=== PATIENT | male | born 1955 | race Hispanic/Latino ===

== ENCOUNTER 2017-08-30 09:35 | Day surgery (SDC) | payer OTHER ==
[2017-08-30] MEDS ORDERED: NACL 0.9% 1000 ML 1,000 ML IV SCH (11:00)
--- NOTE | 2017-08-30 11:06 | Anesthesia Day of Surgery ---
Anesthesia Day of Surgery - Day of Surgery Patient Examined: Yes Patient H&P Reviewed: Yes Patient is NPO: Yes Beta Blockers: Yes
--- NOTE | 2017-08-30 11:06 | Anesthesia Consultation ---
Anesthesia Consult and Med Hx Date of service: 08/30/17 - Airway Anesthetic Teeth Evaluation: Chipped (left back molar ) ROM Head & Neck: Adequate Mental/Hyoid Distance: Adequate Mallampati Class: Class II Intubation Access Assessment: Probably Good - Pulmonary Exam CTA: Yes - Cardiac Exam Cardiac Exam: RRR - Pre-Operative Health Status ASA Pre-Surgery Classification: ASA3 Proposed Anesthetic Plan: MAC - Pulmonary Hx Sleep Apnea: Yes (does not use CPAP) - Cardiovascular System Hx Hypertension: Yes Hx Angina: No Hx Cardia Arrhythmia: Yes (HX A flutter/ Afib, cardioversion 2014 ) Hx Heart Murmur: Yes - Gastrointestinal Hx Gastroesophageal Reflux Disease: Yes - Endocrine Hx Non-Insulin Dependent Diabetes: Yes - Additional Comments Anesthesia Medical History Comments: hx high cholesterol, kidney stones
[2017-08-30] MEDS ORDERED: DIPRIVAN 10 MG/ML IV ONE ×2 (11:31)
--- NOTE | 2017-08-30 14:19 | Operative Report ---
Operative Report Operative Report: Date of procedure: 08/30/2017 Procedure: Colonoscopy with Multiple Snare polypectomies, Hot Biopsy Polypectomy and Submucosal injection. Attending physician: uRdy Ferreira MD [employer] Sh[employer] Roofer: Rudy Ferreira MD Indication: Patient is a 62-year-old male who presents for screening colonoscopy. He has a past history of colon polyps. This colonoscopy serves to evaluate patient so that treatment may be directed based on the findings. Consent: Informed consent was obtained after advising the patient and family regarding nature of this procedure, its indications, potential benefits as well as possible complications including but not limited to bleeding perforation and adverse reaction to medication, infection as well as other cardiopulmonary complications. An informed written and verbal consent was then obtained after due opportunity was provided for questions and answers. Monitoring: Patient was monitored continuously with pulse oximetry and electrocardiographic recordings as well as blood pressure recordings. Vital signs remained stable throughout this procedure with no untoward events. Preoperative assessment: Patient was assessed immediately prior to this procedure for capacity to tolerate monitored anesthesia care and moderate sedation as well as general anesthesia. Patient's ASA classification is 2, Mallampati class is 2, Hyomental distance is 3. Instrument: Cuponomian video colonoscope Medications: Propofol given intravenously in divided doses. For details please refer to anesthesia records. Description of procedure: Patient was placed in the left lateral decubitus position after achieving sedation, a digital rectal examination was performed following which the colonoscope was introduced into the anal verge and advanced to the cecum which was identified by the cecal valve, the appendiceal orifice, as well as by the cecal strap and direct transillumination. The colonoscope was subsequently withdrawn with careful inspection of all mucosal surfaces. Patient tolerated this procedure well and was subsequently taken to the recovery room. The following findings were noted. Findings: Patient had mild melanosis coli involving the entirety of the colon. There was a polyp which measured approximately 7-8 mm in the transverse colon. This was flat. It was elevated with submucosal injection of saline and removed by snare electrocautery and retrieved. In the descending colon, there was another polyp measured protein 7-8 mm which again was flat elevated with submucosal injection of saline and retrieved. There was an adjoining 6 mm sessile polyp in the descending colon which was removed by hot biopsy polypectomy and retrieved. There were a few scattered diverticula in the sigmoid and descending colon. There was some densely adherent thick liquid mucoid stool seen in various sections of the colon which was irrigated as much as possible to optimize visualization. On the retroflex view at the anal verge , patient had internal hemorrhoids. Impression: Transverse colon polyp status post snare polypectomy and submucosal injection Descending colon polyp status post snare polypectomy and submucosal injection Descending colon polyp status post hot biopsy polypectomy Diverticular disease of colon Retained stool Internal hemorrhoids. Plan: Follow pathology report. High-fiber diet. Repeat colonoscopy in 5 years.
--- NOTE | 2017-08-30 14:20 | Discharge Summary ---
Short Stay Discharge Plan Activity: advance as tolerated Weight Bearing Status: Weight Bear as Tolerated Diet: regular Additional Instructions: Post Sedation D/C Instructions When you return home you may resume your regular diet unless otherwise directed. -Go directly home from the hospital and rest quietly. You may resume normal activities tomorrow. -Do NOT drive, return to work, operate any machinery or make any important personal or business decisions today. -Do NOT drink any alcohol or take nerve or sleeping drugs. They add to the effects of the medicine still present in your body. Follow up with Dr. Ferreira in 2 weeks to obtain pathology results and treatment plan. Follow up with: JORDAN NASH MD [Primary Care Provider] - 7 Days
[2017-08-30] MEDS ORDERED: WATER FOR IRRIG STERILE IR ONE (14:34)
--- NOTE | 2017-08-30 14:37 | Post Anesthesia Evaluation ---
- Post Anesthesia Evaluation Patient Participated: Yes Airway Patent: Yes Stable Respiratory Function: Yes Nausea/Vomiting: No Temp > 96.8F: Yes Pain Manageable: Yes Adequeate Hydration: Yes Anesthesia Complications: No
[2017-08-30 14:50] VITALS: BP 164/78
== END 2017-08-30 09:36 | disposition home or self-care (01) ==
LOC: GIO 09:35
PROVIDERS: ATTEND Internal Medicine Gastroenterology
DX: Z09 Encounter for follow-up examination after completed treatment for conditions other than malignant neoplasm (principal); D12.2 Benign neoplasm of ascending colon; D12.3 Benign neoplasm of transverse colon; K57.30 Diverticulosis of large intestine without perforation or abscess without bleeding; K58.9 Irritable bowel syndrome, unspecified; K21.9 Gastro-esophageal reflux disease without esophagitis; I10 Essential (primary) hypertension; E11.9 Type 2 diabetes mellitus without complications; G47.30 Sleep apnea, unspecified; I48.91 Unspecified atrial fibrillation; I48.92 Unspecified atrial flutter; E78.00 Pure hypercholesterolemia, unspecified; Z88.6 Allergy status to analgesic agent; Z79.84 Long term (current) use of oral hypoglycemic drugs; Z86.010 Personal history of colon polyps; Z79.01 Long term (current) use of anticoagulants
CPT/HCPCS: 45384; 45390; 82962; 88305; J2704; J7030